=== PATIENT | female | born 1955 | race Caucasian/White ===

== ENCOUNTER → 2021-12-25 08:27 | Outpatient (CLI) | payer MEDICARE, SELFPAY ==
--- NOTE | ~2021-12-25 | MR_ITS ---
EXAMINATION: MR hip RT wo con DATE: 12/25/2021 09:18 INDICATION: Right hip pain TECHNIQUE: Magnetic resonance imaging (MRI) of the right hip was performed without intravenous contr ast. Sequences included full-field axial PD-weighted FS FSE and T1-weighted FSE, coronal of the pelvi s with PD-weighted FS FSE, T2-weighted FSE and T1-weighted FSE, small field of view of the right hip with axial PD-weighted FS FSE, sagittal PD-weighted FS FSE, coronal PD-weighted FS FSE and coronal T2 weighted FSE. Additional radial T1-weighted FGR oriented orthogonal to the acetabular rim were obt ained for evaluation of the labrum. COMPARISON: None FINDINGS: Bones/labrum/cartilage: Alignment is normal. No fracture, avascular necrosis or pathologic marrow replacing process. Right a cetabular labrum is normal. Mild right hip osteoarthritis with partial thickness cartilage loss with smooth chondral surface along the anterior and posterior aspects of both the right humeral head and a cetabulum. Mild lower lumbar spondylosis. Mild to moderate bilateral a sacroiliitis with joint space narrowing and a small erosions versus subarticular cyst like and edema-like changes at the caudal asp ect of both joint spaces.. Fluid: Symmetric physiologic amount of fluid within both hip joints. Mild increased fluid signal consistent with mild bilateral gluteus medius medius and minimus bursitis. Additional relatively symmetric mild bilateral ischial bursitis. No other abnormal fluid collections. Soft tissues: Normal and symmetric muscle bulk and signal in the pelvis and visualized proximal thighs. The bilater al iliopsoas tendons are normal. Mild tendinopathy without discrete tears at the bilateral proximal h amstring tendons. Mild tendinopathy without discrete tears at the bilateral gluteus medius and minimu s tendons. There are enthesopathic ossifications at the bilateral greater trochanters primarily at th e radius minimus insertions. 2.2 cm left adnexal cyst. Limited evaluation of visceral organs of the p ryan is otherwise unremarkable. No pathologically enlarged pelvic/inguinal lymphadenopathy. IMPRESSION: 1. Mild right hip osteoarthritis. 2. Relatively symmetric bilateral mild gluteus medius and minimus tendinopathy without tears but with associated mild diffuse medius and minimus bursitis.. 3. Additional relatively symmetric mild tendinopathy of the proximal hamstring tendons without discre te tear and with mild bilateral ischial bursitis. 4. 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 Reviewed, dictated and finalized at location A. IMPRESSION: 1. Mild right hip osteoarthritis. 2. Relatively symmetric bilateral mild gluteus medius and minimus tendinopathy without tears but with associated mild diffuse medius and minimus bursitis.. 3. Additional relatively symmetric mild tendinopathy of the proximal hamstring tendons without discrete tear and with mild bilateral ischial bursitis. 4. 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
== END ==
PROVIDERS: PCP Internal Medicine; Visit Provider Orthopaedic Surgery
DX: M25.551 Pain in right hip (principal); M16.11 Unilateral primary osteoarthritis, right hip; M71.551 Other bursitis, not elsewhere classified, right hip; M47.898 Other spondylosis, sacral and sacrococcygeal region
CPT/HCPCS: 73721

== ENCOUNTER → 2022-01-09 07:43 | Outpatient (CLI) | payer MEDICARE, SELFPAY ==
--- NOTE | ~2022-01-09 | MR_ITS ---
EXAMINATION: MR lumbar spine wo con DATE: 01/09/2022 08:21 INDICATION: Low back pain. TECHNIQUE: Magnetic resonance imaging (MRI) of the lumbar spine was performed without intravenous con trast. Sequences included sagittal T2-weighted FSE, sagittal T2-weighted FS FSE, sagittal T1-weighted FSE, and axial T2-weighted FSE. COMPARISON: None FINDINGS: There is 4 degrees levocurvature of lumbar spine. Vertebral body heights are normal. There is mildly decreased disc height at L3-L4, L4-L5, and L5-S1. The distal spinal cord signal intensity i s normal. The conus medullaris is at L1. The following disc levels are specifically discussed: L1-L2: The disc does not extend beyond the endplate margin. There is mild bilateral facet joint osteo arthritis. There is no neural foraminal stenosis. There is no central canal stenosis. L2-L3: The disc is mildly bulging. There is mild bilateral facet joint osteoarthritis. There is mild left neural foraminal stenosis. There is no central canal stenosis. L3-L4: The disc is bulging. There is mild bilateral facet joint osteoarthritis. There is mild bilater al neural foraminal stenosis. There is mild central canal stenosis. L4-L5: The disc is bulging and has an annular fissure. There is severe bilateral facet joint osteoart hritis. There is mild bilateral neural foraminal stenosis. There is mild central canal stenosis. L5-S1: The disc is bulging. There is severe right and moderate left facet joint osteoarthritis. There is mild bilateral neural foraminal stenosis. There is mild central canal stenosis. IMPRESSION: 1. Mild lumbar spondylosis. Reviewed, dictated and finalized at location A. IMPRESSION: 1. Mild lumbar spondylosis.
== END ==
PROVIDERS: PCP Internal Medicine; Visit Provider Orthopaedic Surgery
DX: M47.896 Other spondylosis, lumbar region (principal)
CPT/HCPCS: 72148